=== PATIENT | female | born 1965 | race Caucasian/White ===

== ENCOUNTER → 2019-12-13 14:20 | Outpatient (CLI) | payer OTHER, SELFPAY ==
--- NOTE | 2019-12-13 15:25 | NEURO ---
NCS and/or EMG Patient Report Ordering Doctor: Qing Peñaloza DATE OF SERVICE: 12/13/19 Sigrid Miles presents for electrodiagnostic testing of the upper limbs. She has numbness and tingling in both hands as well as intermittent neck pain. Electrodiagnostic findings: Median motor nerve demonstrates prolonged distal latency bilaterally with normal amplitude and borderline reduced conduction velocity. Ulnar motor responses within normal limits bilaterally. Normal ulnar F wave. Prolonged left median F-wave. Prolonged median sensory latency at the wrist bilaterally. Normal ulnar and radial sensory responses. On needle EMG, all muscles tested in the upper limb showed no evidence of denervation with normal motor unit action potentials. Electrodiagnostic impression: This is an abnormal study in the upper limbs. 1. Electrodiagnostic findings demonstrate median mononeuropathy. This is consistent with a moderate bilateral carpal tunnel syndrome. 2. No electrodiagnostic evidence for cervical radiculopathy.
== END ==
PROVIDERS: Referring Provider Chiropractor; Visit Provider Chiropractor
DX: M53.1 Cervicobrachial syndrome (principal); M99.01 Segmental and somatic dysfunction of cervical region
CPT/HCPCS: 95886; 95912

== ENCOUNTER → 2025-03-05 | Outpatient (CLI) | payer OTHER, SELFPAY ==
--- NOTE | 2025-03-05 15:00 | VDLE_ITS ---
Reason For Study VL/Venous Duplex US, Unilateral
== END | disposition home or self-care (01) ==
LOC: CVS 14:57
PROVIDERS: PCP Student in an Organized Health Care Education/Training Program; Referring Provider Student in an Organized Health Care Education/Training Program; Visit Provider Student in an Organized Health Care Education/Training Program
DX: M79.89 Other specified soft tissue disorders (principal)
CPT/HCPCS: 93971